=== PATIENT | female | born 1940 | race Two or more races ===

== ENCOUNTER 2017-09-05 09:45 | Outpatient (CLI) | payer OTHER ==
[~2017-09-05 09:45] MED LIST: AMOX1TAB5 PO; ENALAPRIL MALEAT5 MG; FLONASE16 GM NASAL; FOSAMAX70 MG; GLYBURIDE5 MG; SIMVASTATIN20 MG; SYNTHROID75 MCG; TUSSI PRES-B L120 M1 PO; [UNRECOGNIZED DRUG - OTHER]
== END 2017-09-05 10:03 | disposition home or self-care (01) ==
LOC: SONOGRAMA 09:45
DX: E04.1 Nontoxic single thyroid nodule (principal)

== ENCOUNTER 2018-06-11 10:09 | Outpatient (CLI) | payer OTHER ==
[~2018-06-11] VITALS: Ht 152.4 cm; Wt 59.0 kg
== END 2018-06-11 10:35 | disposition home or self-care (01) ==
LOC: OFIC 805 10:09
DX: J34.2 Deviated nasal septum (principal); J31.0 Chronic rhinitis; H90.6 Mixed conductive and sensorineural hearing loss, bilateral; H61.321 Acquired stenosis of right external ear canal secondary to inflammation and infection; H61.23 Impacted cerumen, bilateral

== ENCOUNTER 2018-09-15 13:44 | Outpatient (CLI) | payer OTHER | END 2018-09-15 13:46 | disposition home or self-care (01) | LOC: RAD 13:44 | DX: M54.5 Low back pain (principal) ==

== ENCOUNTER 2018-09-17 10:21 | Outpatient (CLI) | payer OTHER | END 2018-09-17 11:00 | disposition home or self-care (01) | LOC: NUCLEAR 10:21 | DX: I87.2 Venous insufficiency (chronic) (peripheral) (principal) ==

== ENCOUNTER → 2018-09-18 | Outpatient (CLI) | payer OTHER | END | disposition home or self-care (01) | LOC: NUCLEAR 10:00 | DX: I73.9 Peripheral vascular disease, unspecified (principal) ==

== ENCOUNTER 2018-10-01 09:09 | Outpatient (CLI) | payer OTHER ==
[~2018-10-01] VITALS: Ht 152.4 cm; Wt 59.0 kg
[2018-10-01] MEDS ORDERED: FLONASE16 GM NASAL (11:27)
== END 2018-10-01 09:20 | disposition home or self-care (01) ==
LOC: OFIC 805 09:09
DX: H61.22 Impacted cerumen, left ear (principal); H90.3 Sensorineural hearing loss, bilateral; J31.0 Chronic rhinitis; J34.2 Deviated nasal septum; J34.3 Hypertrophy of nasal turbinates

== ENCOUNTER → 2018-10-07 | Outpatient (CLI) | payer OTHER | END | disposition home or self-care (01) | LOC: MRI 08:33 | DX: M54.5 Low back pain (principal) | CPT/HCPCS: 72148 ==

== ENCOUNTER 2019-04-08 12:08 | Outpatient (CLI) | payer OTHER ==
[~2019-04-08] VITALS: Ht 152.4 cm; Wt 59.0 kg
[2019-04-08] MEDS ORDERED: EAR WAX REMOVER15 ML OT (12:45)
[2019-04-08] MEDS ORDERED: FLONASE16 GM NASAL (12:45)
== END 2019-04-08 13:29 | disposition home or self-care (01) ==
LOC: OFIC 805 12:08
DX: H61.22 Impacted cerumen, left ear (principal); J34.2 Deviated nasal septum; J31.0 Chronic rhinitis; H90.3 Sensorineural hearing loss, bilateral

== ENCOUNTER 2019-06-11 13:57 | Outpatient (CLI) | payer OTHER ==
[~2019-06-11 13:57] MED LIST changes: +EAR WAX REMOVER15 ML OT
== END 2019-06-11 13:58 | disposition home or self-care (01) ==
LOC: RAD 13:57
DX: J44.1 Chronic obstructive pulmonary disease with (acute) exacerbation (principal)

== ENCOUNTER 2020-01-21 08:30 | Outpatient (CLI) | payer OTHER | END 2020-01-21 08:39 | disposition home or self-care (01) | LOC: NUCLEAR 08:30 | PROVIDERS: ATTEND Internal Medicine | DX: I73.9 Peripheral vascular disease, unspecified (principal) ==

== ENCOUNTER → 2020-01-25 | Outpatient (CLI) | payer OTHER | END | disposition home or self-care (01) | LOC: NUCLEAR 10:00 | PROVIDERS: ATTEND Internal Medicine | DX: I87.2 Venous insufficiency (chronic) (peripheral) (principal) ==

== ENCOUNTER 2020-11-15 12:02 | Outpatient (CLI) | payer OTHER | END 2020-11-15 12:12 | disposition home or self-care (01) | LOC: RAD 12:02 | PROVIDERS: ATTEND Internal Medicine | DX: R53.1 Weakness (principal); R42 Dizziness and giddiness; M89.8X8 Other specified disorders of bone, other site | CPT/HCPCS: 70553; A9575 ==

== ENCOUNTER 2021-10-17 11:11 | Outpatient (CLI) | payer OTHER | END 2021-10-17 11:18 | disposition home or self-care (01) | LOC: RAD 11:11 | PROVIDERS: ATTEND Orthopaedic Surgery | DX: M25.561 Pain in right knee (principal) ==

== ENCOUNTER 2021-11-12 02:33 | Inpatient (IN) | payer OTHER ==
[~2021-11-12] VITALS: Ht 160 cm; Wt 63.5 kg
--- NOTE | 2021-11-12 02:55 | NUR ---
SE RECIBE PTE ALERTA Y ORIENTADA POR FATIMAH. PTE REFIERE DOLOR ABDOMINAL QUE IRRADIA A ESPALDA, VOMITOS X3 Y MAREOS DESDE LAS 7:00PM. PTE INDICA QUE LOS SINTOMAS OCURRIERON LUEGO DE INGERIR ALIMENTOS.
--- NOTE | 2021-11-12 03:45 | NUR ---
PTE FEMENINA ALERTA Y ORIENTADA EN LAS FATIMAH ESFERAS ES EVALUADA POR . RN GARCIA ORIENTA PTE SOBRE ORDENES DE TX REFIERE COMPRENDER. EXTRAE MUESTRAS DE LABORATORIOS Y CANALIZA VENA BAJO MEDIDAS ASEPTICAS. ADMINSITRA MEDICAMENTOS, BAJO MEDIDAS ASEPTICAS. SE NOTIFICA A RADIOLOGIA PARA CT. SE ENTREGA ENVASE PARA COLECCION PARA U/A REFIERE COMPRENDER.
--- NOTE | 2021-11-12 03:59 | NUR ---
SE REALIZA ADMINISTRACION DE MEDICAMENTO POR ORDEN MEDICA.
--- NOTE | 2021-11-12 05:26 | NUR ---
PACIENTE ALERTA Y ORIENTADA X3. SE ORIENTA SOBRE TX Y PROCEDIMIENTO A REALIZAR Y REFIRIO ENTENDER. PACIENTE SE JOSLYN MEDICAMENTOS ORDENADOS POR MD. SE ADMINISTRA MEDICAMENTOS SQ Y IV ORDENADO POR MD. PACIENTE RECIBIENDO DRIP DE TRIDIL 50MG/250ML D5W BAJANDO A 3ML/HR. SE CANALIZA EN ANTEBRAZO SHAHID BAJO MEDIDAS ASEPTICAS. LE REALIZAN PLACA DE PECHO ORDENADA POR MD. SE TRASLADA A LA UNIDAD DE DOLOR DE PECHO EN CAMA #16 CON BARANDAS ELEVADAS. SE CONECTA A MONITOR CARDIACO Y OXIMETRIA DE PULSO. SE MANTIENE BAJO OBSERVACION POR CAMBIOS SIGNIFICATIVOS.
--- NOTE | 2021-11-12 06:05 | NUR ---
SE RECIBE PTE FEMENINA ALERTA Y ORIENTADA X3,DE AREA DE OBSERVACION SE COLOCA EN CAMA #16 CPU ER,SE CONECTA A MONITOR CARDIACO EREN Y OXIMETRIA CONTINUA,SE REALIZAN S/V,SE COLOCA C/N A 2LTRS,PTE CON 2 H/L PATENTES EN PERIFERAL DERECHA LIBRES DE EDEMA Y ENROJECIMIENTO CON TRIDIL @3ML/HR, ESTA REFIERE NO DOLOR AL MOMENTO SE MANTIENE A PTE EN VIGILANCIA CONSTNATE POR CAMBIOS.
--- NOTE | 2021-11-12 07:17 | NUR ---
SE RECIBE PTE ALERTA Y ORIENTADA X3 EN ZHENG CONECTADA A MONITOR CARDIACO CON OXIMETRIA CONTINUA. PTE CON H/L 2 COLOCADO LOS CUALES SE ENCUENTRAN PATENTES. PTE CON DRIP DE TRIDIL BAJANDO A 3ML/HR. SE MIDEN S/V A PTE Y SE DOCUMENTAN. PTE EN ESPERA DE CONSULTA CON MEDICINA INTERNA. PTE SE CONTINUA MONITORIANDO POR CAMBIOS.
== END 2021-11-15 09:12 | disposition designated cancer center or children's hospital (05) | DRG 281 ==
LOC: ER 02:33 → ICU-2 09:27 → ICU 11-13 21:02
PROVIDERS: ADMIT Internal Medicine; ATTEND Internal Medicine
PROC: B24BZZZ Ultrasonography of Heart with Aorta (ICD-10-PCS; principal; 2021-11-12)
PROC: BW21ZZZ Computerized Tomography (CT Scan) of Abdomen and Pelvis (ICD-10-PCS; 2021-11-14)
DX: I21.A1 Myocardial infarction type 2 (principal); K81.0 Acute cholecystitis; A05.9 Bacterial foodborne intoxication, unspecified; R10.13 Epigastric pain; K29.60 Other gastritis without bleeding; D72.828 Other elevated white blood cell count; I10 Essential (primary) hypertension; E11.9 Type 2 diabetes mellitus without complications; Z79.4 Long term (current) use of insulin; E03.8 Other specified hypothyroidism

== ENCOUNTER 2022-12-17 01:46 | Emergency (ER) | payer OTHER ==
[~2022-12-17] VITALS: Ht 160 cm; Wt 61.2 kg
[2022-12-17] MEDS ORDERED: ONDANSETRON ODT4 MG PO ×2 (07:43→07:45)
[2022-12-17] MEDS ORDERED: LEVSIN/SL0.125 MG SL ×2 (07:44→07:45)
[2022-12-17] MEDS ORDERED: PEPCID40 MG PO (07:44)
== END 2022-12-17 09:18 ==
LOC: ER 01:46
DX: K80.20 Calculus of gallbladder without cholecystitis without obstruction (principal); K85.90 Acute pancreatitis without necrosis or infection, unspecified; K29.70 Gastritis, unspecified, without bleeding